=== PATIENT | female | born 1965 | race Caucasian/White ===

== ENCOUNTER 2021-04-15 04:30 | Emergency (ER) | payer MEDICARE ==
[2021-04-15] MEDS ORDERED: Sodium Chloride 0.9% 10 ML Syringe FLUSH PRN (04:37)
[2021-04-15] MEDS ORDERED: Sodium Chloride 0.9% 2.5 ML Syringe FLUSH PRN (04:37)
--- NOTE | 2021-04-15 04:41 | EDM.PDOC ---
<You Waters - Last Filed: 04/15/21 06:37> ED HPI GENERAL MEDICAL PROBLEM - General Chief Complaint: General Stated Complaint: UNRESPONSIVE Time Seen by Provider: 04/15/21 04:37 Source of Information: Reports: Patient, EMS History Limitations: Reports: Altered Mental Status - History of Present Illness INITIAL COMMENTS - FREE TEXT/NARRATIVE: 55-year-old female history of COPD on 3 L nasal cannula, CHF, QUYEN (not yet on CPAP) was brought in by EMS after her found her minimally responsive in bed (next to him), somnolent with agonal respirations and diaphoretic. EMS noted that she was satting 76% on 3 L nasal cannula which improved upon sitting up. Blood glucose = 209. EMS administered intranasal Narcan 4 mg with improvement to her mentation. History limited secondary to altered mental status. She does have a prescription of Percocet 5/325 q6h and clonazepam 2 mg TID. Her states that she had no complaints before going to sleep tonight. Denies any trauma. ROS Limited secondary to altered mental status Past medical history: COPD Past Surgical history: No additional pertinent history Social history: No additional pertinent history Family history: No additional pertinent history PHYSICAL EXAM General: Somnolent, moderate distress, responds to painful stimuli, GCS11 [id number] HEENT: dry mucous membrane Neck: supple, no meningismus, no Kernig or Brudzinski Cardiac: S1S2 tachycardia, no pedal edema, no JVD Respiratory: Agonal respirations, diminished and coarse breath sounds bilaterally Abdomen: Soft, nontender, no rebound or guarding, nondistended, no pulsatile mass. Back: nontender Musculoskeletal: NVI distally, no deformity Neuro: No focal deficits - Related Data Allergies Allergy/AdvReac Type Severity Reaction Status Date / Time morphine Allergy Other Verified 04/15/21 08:05 Penicillins Allergy Other Verified 04/15/21 08:05 Home Meds: Home Meds Albuterol [Ventolin HFA] 1 puff .XX 04/15/21 [History] Diltiazem [Cardizem CD] 120 mg PO DAILY 04/15/21 [History] Gabapentin [Neurontin] 300 mg PO TID 04/15/21 [History] Metoprolol Tartrate 25 mg PO BID 04/15/21 [History] Montelukast Sodium [Singulair] 10 mg PO DAILY 04/15/21 [History] QUEtiapine Fumarate [Seroquel] 200 mg PO DAILY 04/15/21 [History] clomiPRAMINE HCl [Anafranil] 150 mg PO DAILY 04/15/21 [History] clonazePAM [Clonazepam] 2 mg PO TID 04/15/21 [History] lamoTRIgine [Lamictal] 200 mg PO DAILY 04/15/21 [History] oxyCODONE HCl/Acetaminophen [Oxycodone-Acetaminophen 5-325] 1 each PO Q6HR PRN 04/15/21 [History] ED ROS GENERAL - Review of Systems Review Of Systems: See Below (see dictation) ED EXAM, GENERAL - Physical Exam Exam: See Below (see dictation) #1 Interpretation EKG Interpretation Comments: Heart rate = 85 bpm, normal sinus rhythm, normal QRS interval, no STEMI. EKG and rhythm strip interpreted by me at 0446 Course - Re-Assessments/Exams Free Text/Narrative Re-Assessment/Exam: 04/15/21 04:49 Respiratory therapy arrived to the hospital to place patient on BiPAP. Patient is satting 94% on 10 L NRB. 04/15/21 05:54 Patient received DuoNeb treatment, Solu-Medrol 125 mg, will repeat ABG. 04/15/21 06:05 Patient is a hard stick, techs attempted to draw blood with no success, will have another tech attempt 04/15/21 06:23 Patient repeat ABG improving on BiPAP. Her mentation improving, she is now more lucid and responding to questions. She denies any pain, no headache or chest pain. Her GCS improved to 14 [id number] Departure - Departure Disposition: Against Medical Advice 07 Clinical Impression: Respiratory arrest - Discharge Information Instructions: Hypoxia Referrals: Nat Amaral NP [Primary Care Provider] - Forms: ED Department Discharge Additional Instructions: As we discussed the most likely cause of your respiratory arrest last night was a combination of a number of factors. It is very important that you follow-up with your primary care provider soon as possible to have a sleep study scheduled visits very important you were on a CPAP machine. This is the single most important thing for you to do. The clonazepam and oxycodone that you take can also lower your respiratory drive and make it more likely for episodes like this to occur. It is important you do not stop your clonazepam suddenly. However I encourage you to try and take fewer of the oxycodone tablets particularly in the evening. As we discussed it was my strong recommendation that you stay in the hospital for additional evaluation and stabilization but you have declined that and so you are leaving against advice. If another episode similar to what happened last night happens again it does put your life risk and it could cause you to pass away or develop permanent because of the lack of oxygen to your brain. You are welcome to return to the hospital at any time. If over the next few days you have any worsening trouble breathing develop a cough or fever please call your doctor or return to the ER soon as possible. Please be sure to follow-up with your primary care doctor soon as possible. The following information is given to patients seen in the emergency department who are being discharged to home. This information is to outline your options for follow-up care. We provide all patients seen in our emergency department with a follow-up referral. The need for follow-up, as well as the timing and circumstances, are variable depending upon the specifics of your emergency department visit. If you don't have a primary care physician on staff, we will provide you with a referral. We always advise you to contact your personal physician following an emergency department visit to inform them of the circumstance of the visit and for follow-up with them and/or the need for any referrals to a consulting specialist. The emergency department will also refer you to a specialist when appropriate. This referral assures that you have the opportunity for follow-up care with a specialist. All of these measure are taken in an effort to provide you with optimal care, which includes your follow-up. Under all circumstances we always encourage you to contact your private physician who remains a resource for coordinating your care. When calling for follow-up care, please make the office aware that this follow-up is from your recent emergency room visit. If for any reason you are refused follow-up, please contact the [facility] Emergency Department at and asked to speak to the emergency department charge nurse. Critical Care Note - Critical Care Note Comments: CRITCAL CARE: The high probability of sudden, clinically significant deterioration in the patient's condition required the highest level of my preparedness to intervene urgently. The services I provided to this patient were to treat and/or prevent clinically significant deterioration. Services included the following: chart data review, reviewing nursing notes and/or old charts, documentation time, oracle iam consultant collaboration regarding findings and treatment options, medication orders and management, direct patient care, vital sign assessments and ordering, interpreting and reviewing diagnostic studies/lab tests. Aggregate critical care time includes only time during which I was engaged in work directly related to the patient's care, as described above, whether at the bedside or elsewhere in the Emergency Department. It did not include time spent performing other reported procedures or the services of residents, students, nurses or physician assistants. Frequent interventions and/or frequent repeat evaluations were required as well as counseling and coordination of care regarding prognosis, treatments, and discussions with patient, staff and consultants. Critical Care (excluding other procedures): 40 minutes <Yovanny Rios - Last Filed: 04/15/21 09:03> Course - Vital Signs Last Recorded V/S: Last Vital Signs Temp 97.2 F 04/15/21 07:00 Pulse 108 H 04/15/21 08:46 Resp 18 04/15/21 07:43 BP 141/86 H 04/15/21 08:46 Pulse Ox 93 L 04/15/21 08:46 - Orders/Labs/Meds Orders: Active Orders 24 hr Category Date Time Status BIPAP [RT BiPAP/CPAP] [RC] ASDIRECTED Care 04/15/21 04:47 Active Cardiac Monitoring [RC] . DIRECTED Care 04/15/21 04:37 Active Pulse Oximetry [RC] ASDIRECTED Care 04/15/21 04:37 Active RT Aerosol Therapy [RC] ASDIRECTED Care 04/15/21 04:47 Active Head wo Cont [CT] Stat Exams 04/15/21 06:18 Ordered CULTURE BLOOD [BC] Stat Lab 04/15/21 04:39 Ordered CULTURE BLOOD [BC] Stat Lab 04/15/21 05:23 Results LACTATE DEHYDROGENASE,LDH [CHEM] Stat Lab 04/15/21 05:04 Ordered LACTATE SEPSIS W/ REFLEX [CHEM] Stat Lab 04/15/21 04:37 Ordered PROCALCITONIN [REF] Stat Lab 04/15/21 04:37 Ordered T4 FREE [CHEM] Stat Lab 04/15/21 06:45 Results TSH REFLEX TO FREE T4 [CHEM] Stat Lab 04/15/21 06:45 Results Sodium Chloride 0.9% [Saline Flush] Med 04/15/21 04:37 Active 10 ml FLUSH ASDIRECTED PRN Sodium Chloride 0.9% [Saline Flush] Med 04/15/21 04:37 Active 2.5 ml FLUSH ASDIRECTED PRN Blood Culture x2 Reflex Set [OM.PC] Stat Oth 04/15/21 04:38 Ordered Saline Lock Insert [OM.PC] Stat Ot 04/15/21 04:38 Ordered Medication Orders Sodium Chloride (Sodium Chloride 0.9% 10 Ml Syringe) 10 ml FLUSH ASDIRECTED PRN PRN Reason: Keep Vein Open Last Admin: 04/15/21 04:59 Dose: 10 ml Documented by: DEMETRICE Sodium Chloride (Sodium Chloride 0.9% 2.5 Ml Syringe) 2.5 ml FLUSH ASDIRECTED PRN PRN Reason: Keep Vein Open Last Admin: 04/15/21 05:00 Dose: 2.5 ml Documented by: DEMETRICE Labs: Laboratory Tests 04/15/21 04/15/21 04/15/21 Range/Units 04:43 04:55 05:25 WBC (4.0-11.0) K/uL RBC (4.30-5.90) M/uL Hgb (12.0-16.0) g/dL Hct (36.0-46.0) % MCV (80.0-98.0) fL MCH (27.0-32.0) pg MCHC (31.0-37.0) g/dL RDW Std Deviation (28.0-62.0) fl RDW Coeff of Jacques (11.0-15.0) % Plt Count (150-400) K/uL MPV (7.40-12.00) fL Neut % (Auto) (48.0-80.0) % Lymph % (Auto) (16.0-40.0) % [place] % (Auto) (0.0-15.0) % Eos % (Auto) (0.0-7.0) % Baso % (Auto) (0.0-1.5) % Neut # (Auto) (1.4-5.7) K/uL Lymph # (Auto) (0.6-2.4) K/uL [place] # (Auto) (0.0-0.8) K/uL Eos # (Auto) (0.0-0.7) K/uL Baso # (Auto) (0.0-0.1) K/uL Nucleated RBC % /100WBC Nucleated RBCs # K/uL INR ABG pH 7.29 L (7.35-7.45) ABG pCO2 53 H (35-45) mmHG ABG pO2 269 H (80-105) mmHG ABG HCO3 25 (22-26) mEq/L ABG Total CO2 23.9 (23-27) mmol/L ABG Base Excess -1.8 (-2.0-3.0) Sodium (136-145) mmol/L Potassium (3.5-5.1) mmol/L Chloride (98-107) mmol/L Carbon Dioxide (21.0-32.0) mmol/L BUN (7.0-18.0) mg/dL Creatinine (0.6-1.0) mg/dL Est Cr Clr Drug Dosing mL/min Estimated GFR (MDRD) ml/min Glucose (74-106) mg/dL POC Glucose 147 H (70-99) mg/dL Calcium (8.5-10.1) mg/dL Ferritin (8-252) ng/mL Total Bilirubin (0.2-1.0) mg/dL AST (15-37) IU/L ALT (14-63) IU/L Alkaline Phosphatase (46-116) U/L Ammonia (19-54) ug/dL Troponin I (0.000-0.056) ng/mL B-Natriuretic Peptide (<100) PG/ML Total Protein (6.4-8.2) g/dL Albumin (3.4-5.0) g/dL Globulin (2.6-4.0) g/dL Albumin/Globulin Ratio (0.9-1.6) TSH, Ultra Sensitive (0.36-3.74) uIU/mL Urine Color Urine Appearance Urine pH (5.0-8.0) Ur Specific [place] (1.001-1.035) Urine Protein (NEGATIVE) mg/dL Urine Glucose (UA) (NEGATIVE) mg/dL Urine Ketones (NEGATIVE) mg/dL Urine Occult Blood (NEGATIVE) Urine Nitrite (NEGATIVE) Urine Bilirubin (NEGATIVE) Urine Urobilinogen (<2.0) EU/dL Ur Leukocyte Esterase (NEGATIVE) Urine Opiates Screen (NEGATIVE) Ur Oxycodone Screen (NEGATIVE) Urine Methadone Screen (NEGATIVE) Ur Barbiturates Screen (NEGATIVE) Ur Phencyclidine Scrn (NEGATIVE) Ur Amphetamine Screen (NEGATIVE) U Methamphetamines Scrn (NEGATIVE) U Benzodiazepines Scrn (NEGATIVE) U Cocaine Metab Screen (NEGATIVE) U Marijuana (THC) Screen (NEGATIVE) SARS-CoV-2 RNA (VANESSA) NEGATIVE (NEGATIVE) 04/15/21 04/15/21 04/15/21 Range/Units 06:00 06:25 06:25 WBC (4.0-11.0) K/uL RBC (4.30-5.90) M/uL Hgb (12.0-16.0) g/dL Hct (36.0-46.0) % MCV (80.0-98.0) fL MCH (27.0-32.0) pg MCHC (31.0-37.0) g/dL RDW Std Deviation (28.0-62.0) fl RDW Coeff of Jacques (11.0-15.0) % Plt Count (150-400) K/uL MPV (7.40-12.00) fL Neut % (Auto) (48.0-80.0) % Lymph % (Auto) (16.0-40.0) % [place] % (Auto) (0.0-15.0) % Eos % (Auto) (0.0-7.0) % Baso % (Auto) (0.0-1.5) % Neut # (Auto) (1.4-5.7) K/uL Lymph # (Auto) (0.6-2.4) K/uL [place] # (Auto) (0.0-0.8) K/uL Eos # (Auto) (0.0-0.7) K/uL Baso # (Auto) (0.0-0.1) K/uL Nucleated RBC % /100WBC Nucleated RBCs # K/uL INR ABG pH 7.37 (7.35-7.45) ABG pCO2 45 (35-45) mmHG ABG pO2 53 L (80-105) mmHG ABG HCO3 26 (22-26) mEq/L ABG Total CO2 24.3 (23-27) mmol/L ABG Base Excess 0.6 (-2.0-3.0) Sodium (136-145) mmol/L Potassium (3.5-5.1) mmol/L Chloride (98-107) mmol/L Carbon Dioxide (21.0-32.0) mmol/L BUN (7.0-18.0) mg/dL Creatinine (0.6-1.0) mg/dL Est Cr Clr Drug Dosing mL/min Estimated GFR (MDRD) ml/min Glucose (74-106) mg/dL POC Glucose (70-99) mg/dL Calcium (8.5-10.1) mg/dL Ferritin (8-252) ng/mL Total Bilirubin (0.2-1.0) mg/dL AST (15-37) IU/L ALT (14-63) IU/L Alkaline Phosphatase (46-116) U/L Ammonia (19-54) ug/dL Troponin I (0.000-0.056) ng/mL B-Natriuretic Peptide (<100) PG/ML Total Protein (6.4-8.2) g/dL Albumin (3.4-5.0) g/dL Globulin (2.6-4.0) g/dL Albumin/Globulin Ratio (0.9-1.6) TSH, Ultra Sensitive (0.36-3.74) uIU/mL Urine Color YELLOW Urine Appearance CLEAR Urine pH 6.0 (5.0-8.0) Ur Specific [place] >= 1.030 (1.001-1.035) Urine Protein NEGATIVE (NEGATIVE) mg/dL Urine Glucose (UA) NEGATIVE (NEGATIVE) mg/dL Urine Ketones NEGATIVE (NEGATIVE) mg/dL Urine Occult Blood NEGATIVE (NEGATIVE) Urine Nitrite NEGATIVE (NEGATIVE) Urine Bilirubin NEGATIVE (NEGATIVE) Urine Urobilinogen 0.2 (<2.0) EU/dL Ur Leukocyte Esterase NEGATIVE (NEGATIVE) Urine Opiates Screen NEGATIVE (NEGATIVE) Ur Oxycodone Screen POSITIVE (NEGATIVE) Urine Methadone Screen NEGATIVE (NEGATIVE) Ur Barbiturates Screen NEGATIVE (NEGATIVE) Ur Phencyclidine Scrn NEGATIVE (NEGATIVE) Ur Amphetamine Screen NEGATIVE (NEGATIVE) U Methamphetamines Scrn NEGATIVE (NEGATIVE) U Benzodiazepines Scrn NEGATIVE (NEGATIVE) U Cocaine Metab Screen NEGATIVE (NEGATIVE) U Marijuana (THC) Screen NEGATIVE (NEGATIVE) SARS-CoV-2 RNA (VANESSA) (NEGATIVE) 04/15/21 04/15/21 04/15/21 Range/Units 06:45 06:45 06:45 WBC 13.40 H (4.0-11.0) K/uL RBC 3.95 L (4.30-5.90) M/uL Hgb 11.0 L (12.0-16.0) g/dL Hct 35.5 L (36.0-46.0) % MCV 89.9 (80.0-98.0) fL MCH 27.8 (27.0-32.0) pg MCHC 31.0 (31.0-37.0) g/dL RDW Std Deviation 53.0 (28.0-62.0) fl RDW Coeff of Jacques 16 H (11.0-15.0) % Plt Count 269 (150-400) K/uL MPV 10.90 (7.40-12.00) fL Neut % (Auto) 89.3 H (48.0-80.0) % Lymph % (Auto) 5.4 L (16.0-40.0) % [place] % (Auto) 5.1 (0.0-15.0) % Eos % (Auto) 0.1 (0.0-7.0) % Baso % (Auto) 0.1 (0.0-1.5) % Neut # (Auto) 12.0 H (1.4-5.7) K/uL Lymph # (Auto) 0.7 (0.6-2.4) K/uL [place] # (Auto) 0.7 (0.0-0.8) K/uL Eos # (Auto) 0.0 (0.0-0.7) K/uL Baso # (Auto) 0.0 (0.0-0.1) K/uL Nucleated RBC % 0.0 /100WBC Nucleated RBCs # 0 K/uL INR 1.04 ABG pH (7.35-7.45) ABG pCO2 (35-45) mmHG ABG pO2 (80-105) mmHG ABG HCO3 (22-26) mEq/L ABG Total CO2 (23-27) mmol/L ABG Base Excess (-2.0-3.0) Sodium 145 (136-145) mmol/L Potassium 4.6 (3.5-5.1) mmol/L Chloride 108 H (98-107) mmol/L Carbon Dioxide 28.3 (21.0-32.0) mmol/L BUN 14 (7.0-18.0) mg/dL Creatinine 0.9 (0.6-1.0) mg/dL Est Cr Clr Drug Dosing 62.80 mL/min Estimated GFR (MDRD) > 60.0 ml/min Glucose 134 H (74-106) mg/dL POC Glucose (70-99) mg/dL Calcium 8.5 (8.5-10.1) mg/dL Ferritin (8-252) ng/mL Total Bilirubin 0.2 (0.2-1.0) mg/dL AST 38 H (15-37) IU/L ALT 40 (14-63) IU/L Alkaline Phosphatase 95 (46-116) U/L Ammonia (19-54) ug/dL Troponin I < 0.050 (0.000-0.056) ng/mL B-Natriuretic Peptide (<100) PG/ML Total Protein 6.9 (6.4-8.2) g/dL Albumin 3.6 (3.4-5.0) g/dL Globulin 3.3 (2.6-4.0) g/dL Albumin/Globulin Ratio 1.1 (0.9-1.6) TSH, Ultra Sensitive (0.36-3.74) uIU/mL Urine Color Urine Appearance Urine pH (5.0-8.0) Ur Specific [place] (1.001-1.035) Urine Protein (NEGATIVE) mg/dL Urine Glucose (UA) (NEGATIVE) mg/dL Urine Ketones (NEGATIVE) mg/dL Urine Occult Blood (NEGATIVE) Urine Nitrite (NEGATIVE) Urine Bilirubin (NEGATIVE) Urine Urobilinogen (<2.0) EU/dL Ur Leukocyte Esterase (NEGATIVE) Urine Opiates Screen (NEGATIVE) Ur Oxycodone Screen (NEGATIVE) Urine Methadone Screen (NEGATIVE) Ur Barbiturates Screen (NEGATIVE) Ur Phencyclidine Scrn (NEGATIVE) Ur Amphetamine Screen (NEGATIVE) U Methamphetamines Scrn (NEGATIVE) U Benzodiazepines Scrn (NEGATIVE) U Cocaine Metab Screen (NEGATIVE) U Marijuana (THC) Screen (NEGATIVE) SARS-CoV-2 RNA (VANESSA) (NEGATIVE) 04/15/21 04/15/21 04/15/21 Range/Units 06:45 06:45 06:45 WBC (4.0-11.0) K/uL RBC (4.30-5.90) M/uL Hgb (12.0-16.0) g/dL Hct (36.0-46.0) % MCV (80.0-98.0) fL MCH (27.0-32.0) pg MCHC (31.0-37.0) g/dL RDW Std Deviation (28.0-62.0) fl RDW Coeff of Jacques (11.0-15.0) % Plt Count (150-400) K/uL MPV (7.40-12.00) fL Neut % (Auto) (48.0-80.0) % Lymph % (Auto) (16.0-40.0) % [place] % (Auto) (0.0-15.0) % Eos % (Auto) (0.0-7.0) % Baso % (Auto) (0.0-1.5) % Neut # (Auto) (1.4-5.7) K/uL Lymph # (Auto) (0.6-2.4) K/uL [place] # (Auto) (0.0-0.8) K/uL Eos # (Auto) (0.0-0.7) K/uL Baso # (Auto) (0.0-0.1) K/uL Nucleated RBC % /100WBC Nucleated RBCs # K/uL INR ABG pH (7.35-7.45) ABG pCO2 (35-45) mmHG ABG pO2 (80-105) mmHG ABG HCO3 (22-26) mEq/L ABG Total CO2 (23-27) mmol/L ABG Base Excess (-2.0-3.0) Sodium (136-145) mmol/L Potassium (3.5-5.1) mmol/L Chloride (98-107) mmol/L Carbon Dioxide (21.0-32.0) mmol/L BUN (7.0-18.0) mg/dL Creatinine (0.6-1.0) mg/dL Est Cr Clr Drug Dosing mL/min Estimated GFR (MDRD) ml/min Glucose (74-106) mg/dL POC Glucose (70-99) mg/dL Calcium (8.5-10.1) mg/dL Ferritin 9 (8-252) ng/mL Total Bilirubin (0.2-1.0) mg/dL AST (15-37) IU/L ALT (14-63) IU/L Alkaline Phosphatase (46-116) U/L Ammonia 34 (19-54) ug/dL Troponin I (0.000-0.056) ng/mL B-Natriuretic Peptide 104 H (<100) PG/ML Total Protein (6.4-8.2) g/dL Albumin (3.4-5.0) g/dL Globulin (2.6-4.0) g/dL Albumin/Globulin Ratio (0.9-1.6) TSH, Ultra Sensitive (0.36-3.74) uIU/mL Urine Color Urine Appearance Urine pH (5.0-8.0) Ur Specific [place] (1.001-1.035) Urine Protein (NEGATIVE) mg/dL Urine Glucose (UA) (NEGATIVE) mg/dL Urine Ketones (NEGATIVE) mg/dL Urine Occult Blood (NEGATIVE) Urine Nitrite (NEGATIVE) Urine Bilirubin (NEGATIVE) Urine Urobilinogen (<2.0) EU/dL Ur Leukocyte Esterase (NEGATIVE) Urine Opiates Screen (NEGATIVE) Ur Oxycodone Screen (NEGATIVE) Urine Methadone Screen (NEGATIVE) Ur Barbiturates Screen (NEGATIVE) Ur Phencyclidine Scrn (NEGATIVE) Ur Amphetamine Screen (NEGATIVE) U Methamphetamines Scrn (NEGATIVE) U Benzodiazepines Scrn (NEGATIVE) U Cocaine Metab Screen (NEGATIVE) U Marijuana (THC) Screen (NEGATIVE) SARS-CoV-2 RNA (VANESSA) (NEGATIVE) 04/15/21 Range/Units 06:45 WBC (4.0-11.0) K/uL RBC (4.30-5.90) M/uL Hgb (12.0-16.0) g/dL Hct (36.0-46.0) % MCV (80.0-98.0) fL MCH (27.0-32.0) pg MCHC (31.0-37.0) g/dL RDW Std Deviation (28.0-62.0) fl RDW Coeff of Jacques (11.0-15.0) % Plt Count (150-400) K/uL MPV (7.40-12.00) fL Neut % (Auto) (48.0-80.0) % Lymph % (Auto) (16.0-40.0) % [place] % (Auto) (0.0-15.0) % Eos % (Auto) (0.0-7.0) % Baso % (Auto) (0.0-1.5) % Neut # (Auto) (1.4-5.7) K/uL Lymph # (Auto) (0.6-2.4) K/uL [place] # (Auto) (0.0-0.8) K/uL Eos # (Auto) (0.0-0.7) K/uL Baso # (Auto) (0.0-0.1) K/uL Nucleated RBC % /100WBC Nucleated RBCs # K/uL INR ABG pH (7.35-7.45) ABG pCO2 (35-45) mmHG ABG pO2 (80-105) mmHG ABG HCO3 (22-26) mEq/L ABG Total CO2 (23-27) mmol/L ABG Base Excess (-2.0-3.0) Sodium (136-145) mmol/L Potassium (3.5-5.1) mmol/L Chloride (98-107) mmol/L Carbon Dioxide (21.0-32.0) mmol/L BUN (7.0-18.0) mg/dL Creatinine (0.6-1.0) mg/dL Est Cr Clr Drug Dosing mL/min Estimated GFR (MDRD) ml/min Glucose (74-106) mg/dL POC Glucose (70-99) mg/dL Calcium (8.5-10.1) mg/dL Ferritin (8-252) ng/mL Total Bilirubin (0.2-1.0) mg/dL AST (15-37) IU/L ALT (14-63) IU/L Alkaline Phosphatase (46-116) U/L Ammonia (19-54) ug/dL Troponin I (0.000-0.056) ng/mL B-Natriuretic Peptide (<100) PG/ML Total Protein (6.4-8.2) g/dL Albumin (3.4-5.0) g/dL Globulin (2.6-4.0) g/dL Albumin/Globulin Ratio (0.9-1.6) TSH, Ultra Sensitive 0.01 L (0.36-3.74) uIU/mL Urine Color Urine Appearance Urine pH (5.0-8.0) Ur Specific [place] (1.001-1.035) Urine Protein (NEGATIVE) mg/dL Urine Glucose (UA) (NEGATIVE) mg/dL Urine Ketones (NEGATIVE) mg/dL Urine Occult Blood (NEGATIVE) Urine Nitrite (NEGATIVE) Urine Bilirubin (NEGATIVE) Urine Urobilinogen (<2.0) EU/dL Ur Leukocyte Esterase (NEGATIVE) Urine Opiates Screen (NEGATIVE) Ur Oxycodone Screen (NEGATIVE) Urine Methadone Screen (NEGATIVE) Ur Barbiturates Screen (NEGATIVE) Ur Phencyclidine Scrn (NEGATIVE) Ur Amphetamine Screen (NEGATIVE) U Methamphetamines Scrn (NEGATIVE) U Benzodiazepines Scrn (NEGATIVE) U Cocaine Metab Screen (NEGATIVE) U Marijuana (THC) Screen (NEGATIVE) SARS-CoV-2 RNA (VANESSA) (NEGATIVE) Meds: Medications Generic Name Dose Route Start Last Admin Trade Name Freq PRN Reason Stop Dose Admin Sodium Chloride 10 ml 04/15/21 04:37 04/15/21 04:59 Sodium Chloride 0.9% 10 Ml Syringe FLUSH 10 ml ASDIRECTED PRN Administration Keep Vein Open Sodium Chloride 2.5 ml 04/15/21 04:37 04/15/21 05:00 Sodium Chloride 0.9% 2.5 Ml Syringe FLUSH 2.5 ml ASDIRECTED PRN Administration Keep Vein Open Discontinued Medications Generic Name Dose Route Start Last Admin Trade Name Freq PRN Reason Stop Dose Admin Albuterol/Ipratropium 3 ml 04/15/21 04:46 04/15/21 05:11 Albuterol/Ipratropium 3.0-0.5 Mg/3 Ml Neb Soln NEB 04/15/21 04:47 3 ml ONETIME ONE Administration Methylprednisolone Sodium Succinate 125 mg 04/15/21 04:47 04/15/21 04:59 Methylprednisolone Sodium Succinate 125 Mg/2 Ml Sdv IVPUSH 04/15/21 04:48 125 mg ONETIME ONE Administration Departure - Departure Time of Disposition: 09:03 Condition: Good - Discharge Information *PRESCRIPTION DRUG MONITORING PROGRAM REVIEWED*: Not Applicable *COPY OF PRESCRIPTION DRUG MONITORING REPORT IN PATIENT AMY: Not Applicable Sepsis Event Note (ED) - Focused Exam Vital Signs: Vital Signs Temp Pulse Resp BP Pulse Ox 04/15/21 08:46 108 H 141/86 H 93 L 04/15/21 07:43 103 H 18 143/86 H 94 L 04/15/21 07:00 97.2 F 99 18 157/99 H 97 04/15/21 06:33 92 20 159/84 H 95 04/15/21 06:14 91 20 148/77 H 98 04/15/21 05:35 84 20 143/82 H 100 04/15/21 05:27 84 20 128/53 L 100 04/15/21 04:34 97.2 F 95 26 H 112/75 - Assessment/Plan Assessment:: Patient received in signout from Dr. Waters At 7 AM. Patient presented with diminished responsiveness hypoxia and agonal respirations she recovered well on BiPAP. Presentation felt likely to be a combination of her baseline COPD and the effects of the narcotics and benzos that she is on chronically. Chest x-ray shows atelectasis versus pneumonia minimal leukocytosis but no fever and hist ory does not suggest morning there is no cough history of chest pain etc. Patient is now awake and alert she requested removal of the BiPAP and her work of breathing was normal so BiPAP was removed at 0752. We will continue to monitor chemistry normal troponin is normal BNP remains pending. Chest x-ray findings I think could likely represent ongoing postobstructive atelectasis potentially aspiration though there not necessarily reliably confined to the right base. I do think patient requires admission for further evaluation and stabilization. Hospitalist made aware of the patient by prior provider will discuss again. Given the patient's recovery of her normal mental status I do not think CT scan of the brain is indicated at this point there is no headache. 0809: Patient is adamant that she wants to go home. She states that her mother is currently dying on hospice in [place] and that she must go see her. Her oxygen right now is in the mid 90s on 4 L. Patient normally on 3 L 19/02. We discussed the risk of recurrence we discussed the fact that I think her polypharmacy combined with her lack of a CPAP machine here combined with her underlying COPD all likely contributed to the respiratory arrest that occurred last night. We discussed that she is at risk for it happening again unless something is changed. Patient states that she has a primary care doctor here Dr. Amaral. She does not currently have a CPAP machine here because she needs to have a sleep study for Medicare to approve it. We discussed the importance of following up with primary care. I also recommended that she sleep with her head elevated either in a recliner or elevated on several pillows. We will p.o. trial and patient will ambulate on an oxygen monitor if her oxygen stays stable I do not think I have grounds to hold her against her will. Patient has expressed understanding regarding the risk of recurrence of this event and the fact that this was a life-threatening event. 0902: Patient ambulates well with a steady gait oxygen around 90 with ambulation on her oxygen. We discussed that is my strongest recommendation that she stay but she is adamant that she is going to leave we will have patient sign out AMA. Importance of medication titration and follow-up with primary care as well as the risk of recurrent episodes discussed and understood. I do believe the patient has a mental capacity to make this medical choice
[2021-04-15] MEDS ORDERED: Albuterol/Ipratropium 3.0-0.5 MG/3 ML Neb Soln NEB ONE (04:46)
[2021-04-15] MEDS ORDERED: methylPREDNISolone Sodium Succinate 125 MG/2 ML SDV IVPUSH ONE (04:47)
--- NOTE | 2021-04-15 05:22 | CR ---
Indication: Shortness of breath Technique: Chest 1 view Comparison: None Findings/Impression: Cardiac size is upper limits of normal. Patchy opacities in the right lung concerning for infection or atelectasis. The left lung is clear. No effusion or pneumothorax. No acute osseous abnormality. Dictated by Katharine Mehta MD @ 04/15/2021 5:20:50 AM (Electronically Signed)
[2021-04-15 07:30] LABS: BLOOD UREA NITROGEN,BUN 14 mg/dL (7.0-18.0); CARBON DIOXIDE,CO2 28.3 mmol/L (21.0-32.0); CHLORIDE,CL 108 mmol/L (98-107); GLUCOSE RANDOM 134 mg/dL (74-106); POTASSIUM,K 4.6 mmol/L (3.5-5.1); SODIUM,NA 145 mmol/L (136-145)
== END 2021-04-15 09:15 | disposition left against medical advice (07) ==
LOC: MW.ED 04:30
DX: R09.2 Respiratory arrest (principal); I50.9 Heart failure, unspecified; J44.9 Chronic obstructive pulmonary disease, unspecified; Z88.0 Allergy status to penicillin; Z88.5 Allergy status to narcotic agent; Z20.822 Contact with and (suspected) exposure to COVID-19
CPT/HCPCS: 36415; 36600; 71045; 80053; 80305; 81003; 82140; 82728; 82803; 82947; 83615; 83880; 84145; 84439; 84443; 84484; 85025; 85610; 87040; 93005; 94660; 96374; 99285; J2930; U0002; J7620-GY